=== PATIENT | female | born 1960 | race Caucasian/White ===

== ENCOUNTER 2017-10-21 18:35 | Emergency (ER) | payer OTHER, MEDICAID, SELFPAY ==
[2017-10-21 18:36] VITALS: BP 153/89; PULSE 85; RESP 16; TEMP 37.3; O2SAT 96; BMI 33.6
[2017-10-21 19:04] VITALS: TEMP 38.8
--- NOTE | 2017-10-21 19:05 | EKG12_ITS ---
Test Reason : Blood Pressure : / mmHG Vent. Rate : 074 BPM Atrial Rate : 074 BPM P-R Int : 158 ms QRS Dur : 082 ms QT Int : 352 ms P-R-T Axes : 050 047 048 degrees QTc Int : 390 ms Normal sinus rhythm Normal ECG Confirmed by SIMEON KHAN, CHARLI ([id number]), development editor MARY FRIAS ([id number]) on 10/24/2017 12:50:30 PM Referred By: GALDINO Confirmed By:CHARLI HENDRIX MD
[2017-10-21] MEDS: Acetaminophen 500 MG Tablet 1000 MG PO (19:23)
[2017-10-21] MEDS: 0.9% Normal Saline 1,000 ML 150 ML IV (19:23)
[2017-10-21] MEDS: Ondansetron 4 MG/2 ML Vial IV (19:24)
[2017-10-21 19:31] LABS: Absolute Lymphocyte Count 0.81 X10^3/ul (0.83-4.51); Absolute Neutrophil Count 4.6 X10^3/uL (2.0-7.7); Basophil# 0.02 X10^3/uL; Basophil% 0.3 % (0-1); Eosinophil# 0.03 X10^3/uL; Eosinophils% 0.5 % (0-5); Hematocrit 42.4 % (37-47); Hemoglobin 13.7 g/dl (12.0-15.0); Lymphocyte # 0.81 X10^3/ul (4.0); Lymphocyte % 13.1 % (19-41); Mean Corp Hgb Conc 32.3 g/gl (32-36); Mean Corpuscular Hgb 29.5 pg (27.0-32.0); Mean Corpuscular Volume 91.4 fL (81-99); Mean Platelet Vol. 8.9 fl (6.2-12.0); Monocyte# 0.78 X10^3/uL; Monocyte% 12.6 % (0-10); Neutrophil # 4.56 X10^3/uL (2.7-7.7); Neutrophil % 73.5 % (47-70); POSITIVE COUNT NO; POSITIVE DIFFERENTIAL NO; POSITIVE MORPHOLOGY NO; Platelet Count 206 K/mm3 (150-450); RBC Distribution Width CV 12.7 % (11.6-14.6); RBC Distribution Width SD 42.5 fl (35.1-43.9); Red Blood Count 4.64 M/mm3 (4.2-5.4); White Blood Count 6.2 K/mm3 (4.4-11.0)
--- NOTE | 2017-10-21 19:35 | RAD_ITS ---
STUDY: X-RAY CHEST REASON FOR EXAM: Female, 57 years old. Cough TECHNIQUE: PA and lateral views of the chest. COMPARISON: None. FINDINGS: ekg monitor leads are present. The lungs are clear and expanded. There is no demonstrated pleural abnormality. Normal size heart. Normal mediastinum and denise. Normal visualized pulmonary arteries. Normal visualized aortic arch and descending thoracic aorta. Normal visualized thoracic spine. Normal visualized ribs, clavicles, and shoulders. There is no demonstrated abnormality of the visualized soft tissue structures of the upper abdomen. RAD/Chest PA and Lateral IMPRESSION: Normal x-ray examination of the chest. Electronically Signed: Prosper Tejada MD at 19:51 EDT , Service support ,
[2017-10-21 19:50] LABS: Anion Gap 7 (5-15); BUN 13 mg/dL (7-18); BUN/Creat Ratio 19.8 RATIO (10-20); Calcium,Total 9.5 mg/dL (8.5-10.1); Chloride 106 mmol/L (98-107); Creatinine, Serum 0.66 mg/dL (0.55-1.02); EST Glomerular Filtration Rate 99 mL/min (>60); Est Glom Filt Rate - Afr Amer 120 mL/min (>60); Estimated Creatinine Clearance 75.28 ml/min; Glucose 101 mg/dL (74-106); Potassium 3.7 mmol/L (3.5-5.1); Sodium Level 138 mmol/L (136-145)
--- NOTE | 2017-10-21 21:30 | ED.DCSUM_ITS ---
- ER Visit Summary Date of Service: 10/21/17 Chief Complaint: Body aches, fever, cough History of Present Illness: The patient is a 57 F reports she has been ill since the . She had to leave work early that day because she did not feel well. She complain of generalized weakness and aching sensation in her chest. She has had subjective fevers. She is coughing and bringing up white sputum. She feels nauseated but has had no vomiting or diarrhea. Physical Examination: Vital signs reveal blood pressure 153/89, temperature 99.1 , heart rate 85, respiratory rate 16, ox 96% on room air. The time of my examination her temperature is 101.8 orally. Head neck examination is unremarkable. Heart is regular rate and rhythm. lung sounds are clear. Abdomen is soft nontender. Skin examination reveals no rash or lesions. Test Results: Chest x-ray is unremarkable with no focal infiltrate. EKG is sinus at 74 with no sign of acute ischemia. CBC and chemistry studies are normal. Troponin is less than 0.02. Influenza swab is negative. Blood cultures were sent. Emergency Department Course and Treatment: Patient was given Tylenol, IV fluids , and Zofran. On repeat evaluation she appears much improved. Her repeat temperature is 98.9. I believe the patient has viral syndrome. This was discussed with her and at bedside. She will continue to take Tylenol ibuprofen and increase fluids. Treatment Plan: [] Disposition: Discharge Impression: Viral syndrome This note was generated with [employer] dictation software. It may contain incorrect words, spelling, and punctuation that were not noted in review of the chart prior to signing ED Disposition - Plan for ED Patient: Disposition: Home or Assisted Living Chief Complaint: Cold Sx Instructions: ED Viral Syndrome Referrals: Care Physician,No Primary [Primary Care Provider] - Additional Instructions: Follow-up with your doctor at [facility] in 5-7 days if not improving.
--- NOTE | 2017-10-21 21:30 | ED.DEP ---
ED Disposition - Plan for ED Patient: Disposition: Home or Assisted Living Chief Complaint: Cold Sx Instructions: ED Viral Syndrome Additional Instructions: Follow-up with your doctor at [facility] in 5-7 days if not improving.
[2017-10-21 21:46] VITALS: BP 110/65; PULSE 86; RESP 16; O2SAT 95
== END 2017-10-21 21:50 | disposition home or self-care (01) ==
PROVIDERS: Emergency Provider Emergency Medicine
DX: B34.9 Viral infection, unspecified (principal); R50.9 Fever, unspecified; R07.89 Other chest pain; R05 Cough; R11.0 Nausea; R53.1 Weakness; M79.1 Myalgia; Z90.89 Acquired absence of other organs; Z87.891 Personal history of nicotine dependence
CPT/HCPCS: 36415; 71046; 80048; 84484; 85025; 87040; 87804; 93005; 96361; 96374; 99285; J7030; A4216; J2405

== ENCOUNTER 2018-05-11 06:10 | Emergency (ER) | payer OTHER, MEDICAID, SELFPAY ==
[2018-05-11 06:10] VITALS: BP 139/92; PULSE 71; RESP 18; TEMP 36.8; O2SAT 92; BMI 32.0
--- NOTE | 2018-05-11 06:22 | CT_ITS ---
STUDY: CT ABDOMEN AND PELVIS WITH CONTRAST REASON FOR EXAM: Female, 57 years old. Left lower quadrant pain. RADIATION DOSAGE (If Supplied By Facility): CTDIvol = ( 18.69 ) mGy, DLP = ( 1312.89 ) mGycm TECHNIQUE: Transaxial images were obtained from the dome of the diaphragm to the symphysis pubis with oral contrast. 100 ml of Isovue 300 contrast was administered. Sagittal and coronal images were reconstructed. Individualized dose optimization techniques were used for this CT. COMPARISON: None. FINDINGS: The visualized lung bases are unremarkable. The visualized portions of the heart are within normal limits. There is hepatomegaly with diffuse hepatic enlargement. Normal gallbladder and extrahepatic biliary system. Normal spleen. Normal pancreas. Normal bilateral adrenal glands. Normal right kidney. Normal left kidney. Normal visualized stomach. Normal small intestine. There is diverticulosis, with thickening of the sigmoid colon wall, and pelvic pericolonic inflammation changes consistent with acute diverticulitis, series 2 images 100/132 through 110/132. The appendix is visualized and appears normal. There is diffuse atherosclerotic calcification of the abdominal aorta, without a demonstrated aneurysm. Normal inferior vena cava. Normal retroperitoneum. Normal urinary bladder. Normal visualized uterus. Normal abdominal wall. Normal osseous structures. CT/Abdomen/Pelvis WITH Contrast IMPRESSION: Sigmoid diverticulitis. No obstruction. Electronically Signed: Maximiliano Diane MD at 8:25 EST , Service support ,
[2018-05-11 06:37] LABS: Absolute Lymphocyte Count 1.67 X10^3/ul (0.83-4.51); Absolute Neutrophil Count 6.2 X10^3/uL (2.0-7.7); Basophil# 0.02 X10^3/uL; Basophil% 0.2 % (0-1); Eosinophil# 0.14 X10^3/uL; Eosinophils% 1.6 % (0-5); Hematocrit 39.5 % (37-47); Hemoglobin 12.7 g/dl (12.0-15.0); Lymphocyte # 1.67 X10^3/ul (4.0); Lymphocyte % 18.6 % (19-41); Mean Corp Hgb Conc 32.2 g/gl (32-36); Mean Corpuscular Hgb 29.9 pg (27.0-32.0); Mean Corpuscular Volume 92.9 fL (81-99); Mean Platelet Vol. 8.8 fl (6.2-12.0); Monocyte# 0.93 X10^3/uL; Monocyte% 10.3 % (0-10); Neutrophil # 6.21 X10^3/uL (2.7-7.7); Neutrophil % 69.1 % (47-70); POSITIVE COUNT NO; POSITIVE DIFFERENTIAL NO; POSITIVE MORPHOLOGY NO; Platelet Count 250 K/mm3 (150-450); RBC Distribution Width CV 12.6 % (11.6-14.6); RBC Distribution Width SD 42.4 fl (35.1-43.9); Red Blood Count 4.25 M/mm3 (4.2-5.4)
--- NOTE | 2018-05-11 06:41 | ED.DCSUM_ITS ---
- ER Visit Summary Date of Service: 05/11/18 Chief Complaint: Abdominal pain History of Present Illness: The patient is a 57 F who presents with abdominal pain. It is been present for 4 days. It is intermittent in the left lower abdomen. She states that it is worse last night it was an 8 out of 10 in [facility]. Currently she describes her pain is mild and rates it as 4 out of 10. She had prior similar symptoms when she had constipation but states she has been having daily bowel movements. She denies diarrhea nausea vomiting fever. She denies any urinary symptoms such as dysuria frequency urgency. She reports a colonoscopy previously which was reportedly normal. No history of diverticulitis. Physical Examination: Afebrile vitals normal Patient resting comfortably no distress Moist mucous membranes Heart regular rate and rhythm Lungs are clear Abdomen soft nondistended she does have some left lower quadrant tenderness no guarding no rebound Alert Test Results: CBC BMP unremarkable. Urinalysis and CT of the abdomen and pelvis with oral and IV contrast is pending at the time of this dictation. Emergency Department Course and Treatment: Patient declined any pain medications at the time my evaluation. She stated her pain was manageable. I am suspicious for acute diverticulitis. CT pending as above. What patient will be signed out to the oncoming physician to follow-up on results and make final disposition. Treatment Plan: [] Disposition: Pending CT Impression: Left lower quadrant abdominal pain This note was generated with [employer] dictation software. It may contain incorrect words, spelling, and punctuation that were not noted in review of the chart prior to signing ED Disposition - Plan for ED Patient: Chief Complaint: Abd Pain Referrals: Care Physician,No Primary [NON-STAFF] -
[2018-05-11 06:51] LABS: Anion Gap 7 (5-15); BUN 13 mg/dL (7-18); BUN/Creat Ratio 23.3 RATIO (10-20); Calcium,Total 9.2 mg/dL (8.5-10.1); Chloride 108 mmol/L (98-107); Creatinine, Serum 0.56 mg/dL (0.55-1.02); EST Glomerular Filtration Rate 119 mL/min (>60); Est Glom Filt Rate - Afr Amer 144 mL/min (>60); Estimated Creatinine Clearance 88.72 ml/min; Glucose 106 mg/dL (74-106); Potassium 4.3 mmol/L (3.5-5.1); Sodium Level 139 mmol/L (136-145)
[2018-05-11 07:09] LABS: Bacteria 0 SEEN /hpf (None Seen); Mucous, Urine 0 SEEN /hpf (<or=2+); Red Blood Cells-Urine 0 SEEN /hpf (0-5); White Blood Cells 0 SEEN /hpf (0-5)
[2018-05-11 07:13] LABS: Color, Urine Yellow (Yellow); Glucose, Dipstick Normal (Normal); Ketone-Dipstick Negative (Negative); Leukocyte Esterase-Dipstick 25 /ul (Negative); Nitrite-Dipstick Negative (Negative); Occult Blood-Urine Negative /ul (Negative); Protein-Dipstick 15 mg/dl (Negative); Urine Bilirubin Dipstick Negative (Negative); Urine Clarity Clear (Clear); Urine Urobilinogen Normal (Normal)
[2018-05-11 07:19] LABS: Squamous Epithelial Cells - UA 0-5 SEEN /hpf (5-10)
[2018-05-11] MEDS: Ondansetron 4 MG/2 ML Vial IV (09:19)
[2018-05-11] MEDS: Morphine 4 MG/ML Syringe IV (09:19)
[2018-05-11] MEDS: metroNIDAZOLE 500 MG Tablet PO (09:24)
[2018-05-11] MEDS: Ciprofloxacin 500 MG Tablet PO (09:24)
--- NOTE | 2018-05-11 09:31 | ED.DEP ---
ED Disposition - Plan for ED Patient: Chief Complaint: Abd Pain Instructions: ED Diverticulitis Prescriptions: Hydrocodone Bitart/Apap 5-325 [[place] 5MG-325MG] 1 tab PO QHS 2 Days #5 tab Ciprofloxacin [Cipro] 500 mg PO BID #14 tab Naproxen [Naprosyn] 500 mg PO BID #14 tab Metronidazole [Flagyl] 500 mg PO Q6H #40 tab Referrals: Care Physician,No Primary [NON-STAFF] - Rohit Munoz DO [STAFF PHYSICIAN] -
--- NOTE | 2018-05-11 09:34 | DCINST.ED_ITS ---
ED Disposition - Plan for ED Patient: Chief Complaint: Abd Pain Instructions: ED Diverticulitis Prescriptions: Hydrocodone Bitart/Apap 5-325 [[place] 5MG-325MG] 1 tab PO QHS 2 Days #5 tab Ciprofloxacin [Cipro] 500 mg PO BID #14 tab Naproxen [Naprosyn] 500 mg PO BID #14 tab Metronidazole [Flagyl] 500 mg PO Q6H #40 tab Referrals: Care Physician,No Primary [NON-STAFF] - Rohit Munoz DO [STAFF PHYSICIAN] -
[2018-05-11 09:39] VITALS: BP 141/67; PULSE 82; RESP 16; O2SAT 98
== END 2018-05-11 09:40 | disposition home or self-care (01) ==
LOC: ED 06:40
PROVIDERS: Emergency Provider Emergency Medicine; Family Provider Family Medicine; PCP Family Medicine
DX: K57.32 Diverticulitis of large intestine without perforation or abscess without bleeding (principal)
CPT/HCPCS: 74177; 80048; 81001; 85025; 96374; 96375; 99284; Q9967; A4216; J2405

== ENCOUNTER → 2018-10-30 | Outpatient (CLI) | payer OTHER, MEDICAID, SELFPAY ==
--- NOTE | 2018-10-30 15:25 | RAD_ITS ---
STUDY: X-RAY - RIGHT HAND REASON FOR EXAM: Pain. TECHNIQUE: 3 view(s) of the hand. COMPARISON: None. FINDINGS: Normal radiocarpal articulation. Normal distal radioulnar joint. Normal visualized carpal bones. Normal carpal articulations Normal carpometacarpal articulation of the thumb. Normal second through fifth carpometacarpal joints. Normal metacarpi. Normal metacarpophalangeal joint of the thumb. Normal interphalangeal joint of the thumb. Normal proximal and distal phalanges of the thumb. Normal metacarpophalangeal joints of the second through fifth fingers. Normal proximal and distal interphalangeal joints of the second through fifth fingers. Normal phalanges of the second through fifth fingers. The soft tissue structures are unremarkable. RAD/Hand Min 3 Views IMPRESSION: Unremarkable x-ray examination of the right hand. Electronically Signed: Hipolito Almanzar MD at 16:01 EDT Tel , Service support ,
--- NOTE | 2018-10-30 15:25 | RAD_ITS ---
STUDY: X-RAY - LEFT HAND REASON FOR EXAM: Female, 58 years old. Left-sided hand pain. TECHNIQUE: 3 view(s) of the hand. COMPARISON: Prior comparison studies are not available for review at this time. FINDINGS: There is joint space narrowing of the radiocarpal articulation consistent with degenerative arthrosis. Normal distal radioulnar joint. There is a lucency within the scaphoid and may represent a bone cyst. The carpal bones otherwise are within normal limits. Normal carpal articulations Normal carpometacarpal articulation of the thumb. Normal second through fifth carpometacarpal joints. Normal metacarpi. Normal metacarpophalangeal joint of the thumb. Normal interphalangeal joint of the thumb. Normal proximal and distal phalanges of the thumb. Normal metacarpophalangeal joints of the second through fifth fingers. Normal proximal and distal interphalangeal joints of the second through fifth fingers. Normal phalanges of the second through fifth fingers. There is soft tissue swelling. RAD/Hand Min 3 Views IMPRESSION: Soft tissue swelling without obvious acute fracture. Electronically Signed: Aliay Hirsch MD at 0:33 EDT , Service support ,
== END | disposition home or self-care (01) ==
PROVIDERS: Family Provider Family Medicine; PCP Family Medicine; Referring Provider Orthopaedic Surgery; Visit Provider Orthopaedic Surgery
DX: M79.641 Pain in right hand (principal); M79.642 Pain in left hand
CPT/HCPCS: 73130

== ENCOUNTER 2018-11-18 15:30 | Outpatient (RCR) | payer OTHER, MEDICAID, SELFPAY ==
--- NOTE | 2018-11-06 18:31 | HP.OTEVAL ---
Patient's Visit Information CHARLY STEPHENS is a 58 year old F, referred to Occupational Therapy by Kalee Kauffman DO, with a diagnosis of bilateral hand/finger stiffness pain, R thumb trigger finger. Date of Evaluation: 11/06/18 Occupational Therapist: Elli Brito - Subjective Subjective: Pt seen for initial OT evaluation for bilateral hand stifness and pain, R thumb trigger finger. Pt had carpel tunnel sx last November 2017 and now having increased stifffness and pain bilateral fingers. Pt works at [employer] in [employer] completing repetitive work tasks for [employer]. Right hand dominent. Pt indep w/ BADLs/IADLs does have difficulty with opening larger jars and states has increased pain bilateral hands at night and when getting up in the morning. - Pain R hand 1 Pain Intensity Range: 1, 5 L hand 1 Pain Intensity Range: 1, 5 - Objective Objective/Observation: R thumb trigger finger, limited ROM R thumb, increased edema R thumb - ROM Wrist: R 55/64, L 64/72 CMC: R 0/35, L 0/60 MP: R 0/5, L 0/18 IP: R 0/20 L 0/23 - Strength Property Administrator: R 15#, L 25# Lateral Pinch: R 6#, L 8# Tripod Pinch: R 5#, L 7# Strength Comments: R hand dominent - Edema Other: Slight edema R thumb thenar eminence - Sensation Sensation Comments: No numbness or tingling - Quick DASH-Disab of Arm,Shoulder& Hand Quick DASH Score: 47.7250 - Goals Goal:: Pt will progress w/ R hand music publisher strength by 10# to assist w/ functional living tasks by d/c from OT services. Goal:: Pt will progress w/ R thumb MP flexion by 10' to increase indep w/ functional living tasks. Goal:: Pt will demo minimal pain bilateral hands 07/10 by d/c from OT services Goal:: Pt will be educated on joint protection/energy conservation techniques with good understanding and demo 100%x Goal:: Pt will be educated on R hand HEP with good understanding and demo 100%x - Rehabilitation General Assessment: Pt demo decreased ROM R thumb, increased edema R thumb thenar eminence, increased pain bilateral hands and decreased strength R hand all indicating a need for skilled OT services to educate on joint protection/energy conservation, decrease pain bilateral hands, increase ROM R thumb, increase strength R hand, educate on HEP. Rehabilitation Potential: Excellent - Anticipated Interventions Anticipated Interventions: A/AAROM/PROM, Strengthening, Edema Control, Massage, Triggerpoint Release, Modalities, Orthoses, Joint Protection/Energy Conservation, Education re Diagnosis, Education re Self Massage Techniques, Home Program - Visit Plan Frequency: 1-2x /Week Duration: 4-6 Weeks General Plan: educate on joint protection/energy conservation, decrease pain bilateral hands, increase ROM R thumb, increase strength R hand, educate on HEP. TEXT: Thank you for the opportunity to evaluate your patient. For Medicare and Medicare HMO plans, please review the plan of care and approve it. It will need to be FAXED BACK to us at [phone] for Medicare purposes. Please let me know if there are questions or concerns regarding this plan of care. Physician Signature: Date:
--- NOTE | 2019-04-09 16:34 | HP.OT.NRP ---
HP - Discharge Summary - Patient Information CHARLY STEPHENS was seen in my office for initial evaluation on 11/06/18. The following Plan of Care was established for this patient: Initial Frequency: 1-2x /Week Initial Duration: 4-6 Weeks Plan: cont POC , CHT suggusting cortizone injection - Anticipated Interventions Anticipated Interventions: A/AAROM/PROM, Strengthening, Edema Control, Massage, Triggerpoint Release, Modalities, Orthoses, Joint Protection/Energy Conservation, Education re Diagnosis, Education re Self Massage Techniques, Home Program This patient was last seen in our office 11/18/18. Pertinent comments regarding their Occupational therapy will appear below: Pt last seen 11/18/18 for OT services with focus on decreasing pain bilateral hands/wrists and increasing strength. Pt did not meet all goals secondary to non-returning At this point I will be discontinuing this patient from occupational therapy. I would be happy to see this patient again in the future if found appropriate by the physician. Thank you! Elli Brito
== END 2018-11-18 19:00 | disposition home or self-care (01) ==
LOC: OT 15:30
PROVIDERS: Family Provider Family Medicine; PCP Family Medicine; Referring Provider Orthopaedic Surgery; Visit Provider Orthopaedic Surgery
DX: M25.641 Stiffness of right hand, not elsewhere classified (principal); M25.642 Stiffness of left hand, not elsewhere classified; M79.641 Pain in right hand; M79.642 Pain in left hand; M65.311 Trigger thumb, right thumb
CPT/HCPCS: 97035; 97140; 97165; 97166; 97530

== ENCOUNTER 2020-06-24 17:18 | Emergency (ER) | payer OTHER, MEDICAID, SELFPAY ==
[2020-06-24 17:19] VITALS: BP 126/53; PULSE 84; RESP 20; TEMP 37.3; O2SAT 96; BMI 33.8
[2020-06-24 17:21] VITALS: BP 126/53; PULSE 84; RESP 20; TEMP 37.3; O2SAT 96
--- NOTE | 2020-06-24 17:46 | RAD_ITS ---
STUDY: X-RAY CHEST REASON FOR EXAM: Female, 59 years old. chest pain TECHNIQUE: Single AP portable view of the chest. COMPARISON: 10/21/2017 FINDINGS: There are superimposed monitor leads. Stable elevation right hemidiaphragm. Stable compression of parenchyma in the right base. There are areas of hyperinflation. The lungs are clear and expanded. There is no demonstrated pleural abnormality. Normal size heart. Normal mediastinum and denise. Normal visualized pulmonary arteries. Normal visualized aortic arch and descending thoracic aorta. Normal visualized thoracic spine. Normal visualized ribs, clavicles, and shoulders. There is no demonstrated abnormality of the visualized soft tissue structures of the upper abdomen. RAD/Chest 1 View (Portable) IMPRESSION: Stable elevation of the right hemidiaphragm with compression of right basilar parenchyma, areas of hyperinflation. No pulmonary edema, congestive heart failure or confluent pneumonia. Electronically Signed: Jessica Mcdaniels MD at 18:57 EST , Service support ,
--- NOTE | 2020-06-24 17:47 | EKG12_ITS ---
Test Reason : Blood Pressure : / mmHG Vent. Rate : 082 BPM Atrial Rate : 082 BPM P-R Int : 164 ms QRS Dur : 086 ms QT Int : 340 ms P-R-T Axes : 048 052 060 degrees QTc Int : 397 ms Normal sinus rhythm Normal ECG Confirmed by ENEDINA KHAN, ADRIEL ([id number]), photography editor LALITA BLACKWOOD ([id number]) on 06/30/2020 10:03:26 AM Referred By: GALDINO Confirmed By:CORINNE MCCONNELL MD
--- NOTE | 2020-06-24 17:48 | ED.DCSUM_ITS ---
History of Present Illness Chief Complaint: General Illness Informant: Patient Onset: Days Context: Gradual Onset Current Severity: Moderate Maximum Severity: Moderate Narrative: Patient presents with body aches, low-grade fever, cough. She reported tested positive for Covid on the seventh. She states her quarantine period ended on the and she thought she was better. A couple days ago she started feeling worse again with generalized body aches and chest pain. She reports a fever up to 100. She reports increased thirst and urination as well. Past Medical History - Allergies and Home Meds Allergies/Adverse Reactions: Allergies Penicillins Allergy (Verified 06/24/20 17:19) Hives Primary Care Physician: Jayy Ponce MD [Primary Care Provider] - Past Medical History: None Smoking Status: Never smoker Review of Systems General: Reports: Fever - T-max equals 100 Eyes: Denies: Visual changes - bilaterally ENT: Denies: Bilateral ear pain Cardiovascular: Reports: Chest pain Respiratory: Reports: Cough Gastrointestinal: Reports: Nausea. Denies: Abdominal pain, Vomiting, Diarrhea Musculoskeletal: Reports: Myalgias. Denies: Swelling Skin: Denies: Rash Neurological: Denies: Headache Endocrine: Reports: Polyuria, Polydipsia Hematologic: Denies: Easy bruising Allergy: Denies: Uticaria Physical Exam Vital Signs/Narrative: Vital Signs Temp Pulse Resp BP Pulse Ox 06/24/20 17:19 99.1 F 84 20 H 126/53 H 96 Inital Vital Signs reviewed: Yes General: Well nourished, Well developed Head: Normocephalic Neck: Supple Cardiovascular: Regular rate, Regular rhythm Respiratory: No distress, CTA bilaterally Abdomen: Soft, Nontender, Normal bowel sounds Extremities: Nontender Skin: Normal color Neurological: Alert, Oriented x3 Psychological: Normal affect Diagnostic/Tx/Re-eval Chest X-Ray - ED: 1 View, Read by ED Physician, Chronic Changes, No Infiltrates Impressions Chest X-Ray 06/24/20 17:46 IMPRESSION: Stable elevation of the right hemidiaphragm with compression of right basilar parenchyma, areas of hyperinflation. No pulmonary edema, congestive heart failure or confluent pneumonia. Electronically Signed: Jessica Mcdaniels MD at 18:57 EST , Service support , 06/24/20 17:46 Chest 1 View (Portable) [RAD] Stat Laboratory Results 06/24/20 06/24/20 06/24/20 18:00 18:00 18:00 WBC 4.3 L RBC 4.74 Hgb 13.7 Hct 43.4 MCV 91.6 MCH 28.9 MCHC 31.6 L RDW Std Deviation 42.4 RDW Coeff of Jadyn 12.5 Plt Count 145 L MPV 11.4 Immature Gran % (Auto) 0.500 Neut % (Auto) 61.0 Lymph % (Auto) 23.1 [place] % (Auto) 14.7 H Eos % (Auto) 0.2 Baso % (Auto) 0.5 Absolute Neuts (auto) 2.6 Absolute Lymphs (auto) 0.99 Nucleated RBC % 0 D-Dimer Quant (PE/DVT) 0.52 H* Sodium 140 Potassium 4.4 Chloride 109 H Carbon Dioxide 26.0 Anion Gap 5 BUN 13 Creatinine 0.62 Estim Creat Clear Calc 78.23 Est GFR (MDRD) Af Amer 128 Est GFR (MDRD) Non-Af 106 BUN/Creatinine Ratio 21.1 H Glucose 94 Calcium 9.4 Troponin I < 0.015 Urine Color Urine Clarity Urine pH Ur Specific [place] Urine Protein Urine Glucose (UA) Urine Ketones Urine Occult Blood Urine Nitrite Urine Bilirubin Urine Urobilinogen Ur Leukocyte Esterase Urine RBC Urine WBC Ur Squamous Epith Cells Urine Bacteria Urine Mucus 06/24/20 19:45 WBC RBC Hgb Hct MCV MCH MCHC RDW Std Deviation RDW Coeff of Jadyn Plt Count MPV Immature Gran % (Auto) Neut % (Auto) Lymph % (Auto) [place] % (Auto) Eos % (Auto) Baso % (Auto) Absolute Neuts (auto) Absolute Lymphs (auto) Nucleated RBC % D-Dimer Quant (PE/DVT) Sodium Potassium Chloride Carbon Dioxide Anion Gap BUN Creatinine Estim Creat Clear Calc Est GFR (MDRD) Af Amer Est GFR (MDRD) Non-Af BUN/Creatinine Ratio Glucose Calcium Troponin I Urine Color Yellow Urine Clarity Clear Urine pH 7.0 Ur Specific [place] 1.010 Urine Protein Negative Urine Glucose (UA) Normal Urine Ketones 5 H Urine Occult Blood Negative Urine Nitrite Negative Urine Bilirubin Negative Urine Urobilinogen Normal Ur Leukocyte Esterase Negative Urine RBC 0 SEEN Urine WBC 0 SEEN Ur Squamous Epith Cells 0 SEEN Urine Bacteria 1+ Urine Mucus 0 SEEN - EKG Initial EKG Interpretation: Sinus Rhythm - Sinus 82 with no acute ischemia. - Medical Decision Making Patient was given Toradol, morphine, Zofran, and 500 cc IV fluid. Chest x-ray per my interpretation reveals no focal infiltrate. Radiologist read is reviewed. Blood work is unremarkable. D-dimer is normal when age-adjusted. Urinalysis shows no sign of acute infection. Patient will be written a prescription for Zofran. She will continue Tylenol and ibuprofen. ED Disposition - Plan for ED Patient: Disposition: Home or Assisted Living Diagnosis: COVID-19 Instructions: Coronavirus Disease 2019 (COVID-19): Overview, Coronavirus Disease 2019 (COVID-19): Caring for Yourself or Others Prescriptions: Ondansetron [Zofran Odt] 4 mg PO Q8H PRN PRN #10 tablet PRN Reason: Nausea Referrals: Jayy Ponce MD [Primary Care Provider] - 1 Week if not improving
[2020-06-24 18:11] LABS: Absolute Lymphocyte Count 0.99 X10^3/uL (0.83-4.51); Absolute Neutrophil Count 2.6 X10^3/uL (2.0-7.7); Basophil# 0.02 X10^3/uL; Basophil% 0.5 % (0-1); Eosinophil# 0.01 X10^3/uL; Eosinophils% 0.2 % (0-5); Hematocrit 43.4 % (37-47); Hemoglobin 13.7 g/dL (12.0-15.0); Lymphocyte # 0.99 X10^3/ul (4.0); Lymphocyte % 23.1 % (19-41); Mean Corp Hgb Conc 31.6 g/dL (32-36); Mean Corpuscular Hgb 28.9 pg (27.0-32.0); Mean Corpuscular Volume 91.6 fL (81-99); Mean Platelet Vol. 11.4 fl (6.2-12.0); Monocyte# 0.63 X10^3/uL; Monocyte% 14.7 % (0-10); NRBC Flagged by Analyzer 0 % (0-5); Neutrophil # 2.61 X10^3/uL (2.7-7.7); Platelet Count 145 K/mm3 (150-450); RBC Distribution Width CV 12.5 % (11.6-14.6); RBC Distribution Width SD 42.4 fl (35.1-43.9); Red Blood Count 4.74 M/mm3 (4.2-5.4); White Blood Count 4.3 K/mm3 (4.4-11.0)
[2020-06-24 18:21] VITALS: BP 136/75; PULSE 84; RESP 20; TEMP 37.5; O2SAT 96
[2020-06-24 18:31] LABS: Anion Gap 5 (5-15); BUN 13 mg/dL (7-18); BUN/Creat Ratio 21.1 RATIO (10-20); Calcium,Total 9.4 mg/dL (8.5-10.1); Chloride 109 mmol/L (98-107); Creatinine, Serum 0.62 mg/dL (0.55-1.02); EST Glomerular Filtration Rate 106 mL/min (>60); Est Glom Filt Rate - Afr Amer 128 mL/min (>60); Estimated Creatinine Clearance 78.23 ml/min; Glucose 94 mg/dL (74-106); Potassium 4.4 mmol/L (3.5-5.1); Sodium Level 140 mmol/L (136-145)
[2020-06-24] MEDS: Ketorolac 15 MG/ML Vial IV (18:35)
[2020-06-24] MEDS: Morphine 4 MG/ML Syringe IV (18:35)
[2020-06-24] MEDS: Ondansetron 4 MG/2 ML Vial IV (18:35)
[2020-06-24 18:38] LABS: D-Dimer Quantitative (DVT/PE) 0.52 FEU/ug/m (0.27-0.49)
[2020-06-24 19:00] VITALS: BP 115/70; PULSE 72; RESP 18; TEMP 36.7; O2SAT 93
[2020-06-24 19:18] VITALS: BP 115/70; PULSE 78; RESP 15; O2SAT 96
[2020-06-24 20:03] LABS: Color, Urine Yellow (Yellow); Glucose, Dipstick Normal (Normal); Ketone-Dipstick 5 mg/dl (Negative); Leukocyte Esterase-Dipstick Negative /ul (Negative); Mucous, Urine 0 SEEN /hpf (<or=2+); Nitrite-Dipstick Negative (Negative); Occult Blood-Urine Negative /ul (Negative); Protein-Dipstick Negative (Negative); Red Blood Cells-Urine 0 SEEN /hpf (0-5); Squamous Epithelial Cells - UA 0 SEEN /hpf (5-10); Urine Bilirubin Dipstick Negative (Negative); Urine Clarity Clear (Clear); Urine Urobilinogen Normal (Normal); White Blood Cells 0 SEEN /hpf (0-5)
[2020-06-24 20:10] LABS: Bacteria 1+ /hpf (None Seen)
[2020-06-24 20:34] VITALS: BP 117/82; PULSE 81; RESP 18; O2SAT 97
== END 2020-06-24 20:34 | disposition home or self-care (01) ==
PROVIDERS: Emergency Provider Emergency Medicine; PCP Family Medicine
DX: U07.1 COVID-19 (principal); M79.10 Myalgia, unspecified site; R50.9 Fever, unspecified; R05 Cough
CPT/HCPCS: 71045; 80048; 81001; 84484; 85025; 85379; 93005; 96361; 96374; 96375; 99283; J7030; J2405

== ENCOUNTER 2021-02-26 02:03 | Emergency (ER) | payer OTHER, MEDICAID, SELFPAY ==
[2021-02-26 02:06] VITALS: BP 148/83; PULSE 68; RESP 16; TEMP 36.8; O2SAT 97; BMI 38.8
--- NOTE | 2021-02-26 02:19 | CT_ITS ---
HISTORY: left flank pain EXAMINATION: CT Abdomen And Pelvis W/ Contrast Injection TECHNIQUE: Helically acquired images were obtained of the abdomen and pelvis following IV contrast. A radiation dose optimization technique was used for this scan. IV Contrast dosage and agent: 100mL Isovue-370 Oral contrast: None. COMPARISON: Contrast-enhanced CT abdomen and pelvis from 05/11/18 FINDINGS: LOWER CHEST: Mild dependent atelectasis. Heart size upper limits normal. LIVER: Fatty and slightly enlarged liver measuring 17.5 cm AP diameter. Tiny low attenuation cyst within left lobe. No concerning hepatic lesion. GALLBLADDER AND BILIARY TREE: No calcified gallstones identified. There is no pericholecystic edema. No significant biliary ductal dilation. KIDNEYS AND URETERS: Normal renal size. No concerning lesion. There is no perinephric inflammation or hydronephrosis. ADRENAL GLANDS: Non-enlarged. SPLEEN: Normal size without discrete mass. PANCREAS: No discrete mass or peripancreatic inflammation. BOWEL: No evidence of acute appendicitis. Scattered colonic diverticula. Inflamed diverticulum at the distal descending colon with focal colonic wall thickening and pericolonic fat stranding. No bowel obstruction. LYMPH NODES: No enlarged mesenteric or retroperitoneal lymph nodes. PERITONEUM: Trace free fluid within the lower left paracolic gutter adjacent to inflamed diverticulum. No free air or abscess demonstrated. VESSELS: Mild atherosclerosis. URINARY BLADDER: Unremarkable. REPRODUCTIVE ORGANS: No pelvic masses. ABDOMINAL WALL: No acute findings or significant hernia defect. BONES: Intact with no suspicious osseous lesion. CT/Abdomen/Pelvis W IV Cont ONLY IMPRESSION: 1. Left lower quadrant colonic diverticulitis with no perforation or abscess formation. 2. Mild hepatomegaly and hepatic steatosis. 3. Other nonurgent findings within body of report. Individualized dose optimization techniques were used for this CT. at 0403 Reported and signed by: Rohit Jose MD Electronically Signed: Rohit Jose MD at 4:02 EDT Tel , Service support ,
[2021-02-26 02:46] LABS: Mucous, Urine 0 SEEN /hpf (<or=2+); Red Blood Cells-Urine 0 SEEN /hpf (0-5)
[2021-02-26 02:52] LABS: Color, Urine Yellow (Yellow); Glucose, Dipstick Normal (Normal); Ketone-Dipstick Negative (Negative); Leukocyte Esterase-Dipstick 25 /ul (Negative); Nitrite-Dipstick Negative (Negative); Occult Blood-Urine Negative /ul (Negative); Protein-Dipstick Negative (Negative); Specific Gravity, Urine 1.015 (1.002-1.030); Urine Bilirubin Dipstick Negative (Negative); Urine Clarity Clear (Clear); Urine Urobilinogen Normal (Normal); Urine pH 6.5 (5.0 - 8.0)
[2021-02-26] MEDS: Morphine 4 MG/ML Syringe IV (03:05)
[2021-02-26 03:14] LABS: Absolute Lymphocyte Count 1.64 X10^3/uL (0.83-4.51); Absolute Neutrophil Count 7.7 X10^3/uL (2.0-7.7); Basophil# 0.04 X10^3/uL; Basophil% 0.4 % (0-1); Eosinophils% 1.9 % (0-5); Hematocrit 40.7 % (37-47); Hemoglobin 13.4 g/dL (12.0-15.0); Lymphocyte # 1.64 X10^3/ul (0.83-4.51); Lymphocyte % 15.3 % (19-41); Mean Corp Hgb Conc 32.9 g/dL (32-36); Mean Corpuscular Hgb 30.7 pg (27.0-32.0); Mean Corpuscular Volume 93.1 fL (81-99); Mean Platelet Vol. 8.8 fl (6.2-12.0); Monocyte# 1.05 X10^3/uL; Monocyte% 9.8 % (0-10); NRBC Flagged by Analyzer 0 % (0-5); Neutrophil # 7.74 X10^3/uL (2.7-7.7); Neutrophil % 72.2 % (47-70); Platelet Count 269 K/mm3 (150-450); RBC Distribution Width CV 12.4 % (11.6-14.6); RBC Distribution Width SD 42.9 fl (35.1-43.9); Red Blood Count 4.37 M/mm3 (4.2-5.4); White Blood Count 10.7 K/mm3 (4.4-11.0)
--- NOTE | 2021-02-26 03:25 | RAD_ITS ---
HISTORY: left rib pain EXAMINATION/TECHNIQUE: XR Chest 1 View AP view COMPARISON: AP chest x-ray from 06/24/20 FINDINGS: LINES/DEVICES: None. LUNGS: No overt pulmonary edema. No focal airspace consolidation. No sizable pleural effusion. No pneumothorax detected. Stable mildly elevated right hemidiaphragm. MEDIASTINUM AND CARDIOVASCULAR STRUCTURES: Stable apical limits normal heart size. Central airways and mediastinal contour are unremarkable. BONES AND SOFT TISSUES: No acute findings. No displaced rib fracture identified. RAD/Chest 1 View (Portable) IMPRESSION: No radiographic evidence of acute cardiopulmonary disease. at 0357 Reported and signed by: Rohit Jose MD Electronically Signed: Rohit Jose MD at 3:55 EDT Tel , Service support ,
[2021-02-26 03:27] LABS: Bacteria RARE /hpf (None Seen); Squamous Epithelial Cells - UA 0-5 SEEN /hpf (5-10); White Blood Cells 0-5 SEEN /hpf (0-5)
[2021-02-26 03:32] LABS: ALB/GLOB Ratio 0.9 RATIO (0.9-2.4); AST(SGOT) 34 U/L (15-37); Alanine Aminotransfer ALT/SGPT 59 U/L (13-56); Albumin, Serum 3.4 g/dL (3.2-5.0); Alkaline Phosphatase 120 U/L (45-117); Anion Gap 7 (5-15); BUN 13 mg/dL (7-18); BUN/Creat Ratio 23.9 RATIO (10-20); Calcium,Total 9.3 mg/dL (8.5-10.1); Chloride 107 mmol/L (98-107); Creatinine, Serum 0.54 mg/dL (0.55-1.02); EST Glomerular Filtration Rate 122 mL/min (>60); Est Glom Filt Rate - Afr Amer 147 mL/min (>60); Estimated Creatinine Clearance 88.72 ml/min; Globulin 3.7 g/dL (2.2-4.2); Glucose 119 mg/dL (74-106); Lipase 342 U/L (73-393); Potassium 3.9 mmol/L (3.5-5.1); Protein, Total 7.1 g/dL (6.4-8.2); Sodium Level 141 mmol/L (136-145)
[2021-02-26 03:54] LABS: Lactic Acid 1.7 mmol/L (0.4-1.9)
--- NOTE | 2021-02-26 04:23 | ED.VIS.GI ---
HPI HPI - GI History of Present Illness Chief Complaint: Flank Pain Informant: patient Narrative Narrative: Patient is a 60-year-old female with history of diverticulitis 4 years ago presenting with left-sided abdominal pain. Patient states the pain seems to radiate from her ribs down to her suprapubic area and is on the left side. She states it woke her up from sleep. Is been going on for the past 3 days but became worse tonight. She describes it as sharp in nature. It was intermittent but now it is constant. She has had some frequency of urination but no she has been drinking a lot of water since it started. She denies associated nausea or vomiting. Denies any change in bowel habits. No black or blood in her stool. No fever. No chest pain or shortness of breath. Has been taking Tylenol at home with some mild relief of her symptoms. Has had multiple abdominal surgeries. PFSH PFS Medical History Acute diverticulitis of intestine Home Medications ciprofloxacin HCl [Cipro] 500 mg PO BID #14 tab 02/26/21 [Rx Last Taken Unknown] hydrocodone-acetaminophen 1 tab PO Q6H PRN 3 Days #12 tab 02/26/21 [Rx Last Taken Unknown] metronidazole [Flagyl] 500 mg PO Q8H #21 tab 02/26/21 [Rx Last Taken Unknown] ondansetron HCl [Zofran] 4 mg PO Q8H PRN #14 tab 02/26/21 [Rx Last Taken Unknown] Allergy/AdvReac Type Severity Reaction Status Date / Time Penicillins Allergy Hives Verified 02/26/21 02:04 Surgical History S/P tonsillectomy and adenoidectomy Social History Smoking Status: Never smoker ROS ROS ED Constitutional Constitutional ED: Denies chills or fever(s) ENT ENT ED: Denies rhinorrhea Cardiovascular Cardiovascular: Denies chest pain or palpitations Respiratory/Chest Respiratory/Chest: Denies cough or dyspnea Gastrointestinal Gastrointestinal: Reports abdominal pain; Denies diarrhea, melena, nausea or vomiting Genitourinary Genitourinary ED: Reports urinary frequency; Denies dysuria or hematuria Musculoskeletal Musculoskeletal: Denies arthralgias or myalgias Integumentary Denies rash Neurologic Neurologic: Denies headache(s) Psychiatric Psychiatric: Denies depression EXAM Physical Exam Const Vital Signs: 02/26/21 02:06 Temperature 98.3 F Temperature Source Oral Pulse Rate 68 Respiratory Rate 16 Blood Pressure 148/83 H Blood Pressure Mean 104 Pulse Ox 97 Oxygen Delivery Method Room Air Positive well nourished and well developed General Appearance ED: well developed HEENT Reports moist mucous membranes normocephalic and atraumatic Eyes PERRL and EOMs intact bilaterally Neck supple and no JVD Resp normal respiratory effort and clear to auscultation bilaterally Cardio regular rate, regular rhythm and no murmurs GI Auscultation: normoactive bowel sounds Palpation: soft and tender LLQ and suprapubic; Negative for guarding or rebound tenderness present Extremity full ROM General Extremety ED: Negative for edema General Extremity: Negative for edema Neuro moves all extremities Sensorium / Orientation: alert Motor Exam: Negative for general weakness Psych mental status grossly normal Skin Lesions: no lesions Rashes: no rashes MDM MDM MDM Narrative Medical decision making narrative: Patient is evaluated for worsening left-sided abdominal pain. She is quite tender in her abdomen but does not have any peritoneal signs. She is given IV morphine in the emergency room. Her CBC is relatively normal as well as her CMP. Lactate is normal. Urinalysis shows 25 leukoesterase but is not concerning for UTI. CT abdomen pelvis does show diverticulitis that perforation or abscess in the left lower quadrant. This is consistent with her presentation. As patient is allergic to penicillin, she is started on Cipro and Flagyl. She is given first dose in the emergency room. She will follow up outpatient with her PCP. She is also in a prescription for [place] and Zofran for further symptom relief. She is counseled she might need to take a stool softener while she is on pain medications because of opioid-induced constipation. Lab Data Attestation: I reviewed the patient's lab results. Labs: Laboratory Results - last 24 hr 02/26/21 02/26/21 02/26/21 02:42 03:07 03:07 WBC 10.7 RBC 4.37 Hgb 13.4 Hct 40.7 MCV 93.1 MCH 30.7 MCHC 32.9 RDW Std Deviation 42.9 RDW Coeff of Jadyn 12.4 Plt Count 269 MPV 8.8 Immature Gran % (Auto) 0.400 Neut % (Auto) 72.2 H Lymph % (Auto) 15.3 L [place] % (Auto) 9.8 Eos % (Auto) 1.9 Baso % (Auto) 0.4 Absolute Neuts (auto) 7.7 Absolute Lymphs (auto) 1.64 Nucleated RBC % 0 Sodium 141 Potassium 3.9 Chloride 107 Carbon Dioxide 27.0 Anion Gap 7 BUN 13 Creatinine 0.54 L Estim Creat Clear Calc 88.72 Est GFR (MDRD) Af Amer 147 Est GFR (MDRD) Non-Af 122 BUN/Creatinine Ratio 23.9 H Glucose 119 H Lactic Acid Calcium 9.3 Total Bilirubin 0.80 AST 34 ALT 59 H Alkaline Phosphatase 120 H Total Protein 7.1 Albumin 3.4 Globulin 3.7 Albumin/Globulin Ratio 0.9 Lipase 342 Urine Color Yellow Urine Clarity Clear Urine pH 6.5 Ur Specific [place] 1.015 Urine Protein Negative Urine Glucose (UA) Normal Urine Ketones Negative Urine Occult Blood Negative Urine Nitrite Negative Urine Bilirubin Negative Urine Urobilinogen Normal Ur Leukocyte Esterase 25 H Urine RBC 0 SEEN Urine WBC 0-5 SEEN Ur Squamous Epith Cells 0-5 SEEN Urine Bacteria RARE Urine Mucus 0 SEEN 02/26/21 03:07 WBC RBC Hgb Hct MCV MCH MCHC RDW Std Deviation RDW Coeff of Jadyn Plt Count MPV Immature Gran % (Auto) Neut % (Auto) Lymph % (Auto) [place] % (Auto) Eos % (Auto) Baso % (Auto) Absolute Neuts (auto) Absolute Lymphs (auto) Nucleated RBC % Sodium Potassium Chloride Carbon Dioxide Anion Gap BUN Creatinine Estim Creat Clear Calc Est GFR (MDRD) Af Amer Est GFR (MDRD) Non-Af BUN/Creatinine Ratio Glucose Lactic Acid 1.7 Calcium Total Bilirubin AST ALT Alkaline Phosphatase Total Protein Albumin Globulin Albumin/Globulin Ratio Lipase Urine Color Urine Clarity Urine pH Ur Specific [place] Urine Protein Urine Glucose (UA) Urine Ketones Urine Occult Blood Urine Nitrite Urine Bilirubin Urine Urobilinogen Ur Leukocyte Esterase Urine RBC Urine WBC Ur Squamous Epith Cells Urine Bacteria Urine Mucus Radiography Diagnostic Testing: Radiology Impression Abdomen/Pelvis CT 02/26/21 02:19 IMPRESSION: 1. Left lower quadrant colonic diverticulitis with no perforation or abscess formation. 2. Mild hepatomegaly and hepatic steatosis. 3. Other nonurgent findings within body of report. Individualized dose optimization techniques were used for this CT. at 0403 Reported and signed by: Rohit Jose MD Electronically Signed: Rohit Jose MD at 4:02 EDT Tel , Service support , Chest X-Ray 02/26/21 03:25 IMPRESSION: No radiographic evidence of acute cardiopulmonary disease. at 0357 Reported and signed by: Rohit Jose MD Electronically Signed: Rohit Jose MD at 3:55 EDT Tel , Service support , Discharge Plan Triage Chief Complaint: Flank Pain ED Provider: Radha Sanchez Dx/Rx/DC Orders Clinical Impression: Diverticulitis large intestine w/o perforation or abscess w/o bleeding Instructions: ED Diverticulitis Prescriptions: New ciprofloxacin HCl [Cipro] 500 mg tablet 500 mg PO BID Qty: 14 RF: 0 metronidazole [Flagyl] 500 mg tablet 500 mg PO Q8H Qty: 21 RF: 0 hydrocodone-acetaminophen 5-325 mg tablet 1 tab PO Q6H PRN (Reason: pain) 3 Days Qty: 12 RF: 0 ondansetron HCl [Zofran] 4 mg tablet 4 mg PO Q8H PRN (Reason: nausea and vomiting) Qty: 14 RF: 0 Primary Care Provider: Jayy Ponce Referrals: Jayy Ponce MD [Primary Care Provider] - Disposition Disposition: Home, Self Care Discharge Date/Time: 02/26/21 04:31
[2021-02-26] MEDS: metroNIDAZOLE 500 MG Tablet PO (04:29)
[2021-02-26 04:30] VITALS: BP 138/62; PULSE 77; RESP 16; O2SAT 98
[2021-02-26] MEDS: Ciprofloxacin 500 MG Tablet PO (04:30)
== END 2021-02-26 04:31 | disposition home or self-care (01) ==
PROVIDERS: Emergency Provider Emergency Medicine; PCP Family Medicine
DX: K57.32 Diverticulitis of large intestine without perforation or abscess without bleeding (principal)
CPT/HCPCS: 71045; 74177; 80053; 81001; 83605; 83690; 85025; 96374; 99285; Q9967; A4216

== ENCOUNTER 2021-04-14 09:51 | Emergency (ER) | payer OTHER, MEDICAID, SELFPAY ==
[2021-04-14 09:52] VITALS: BP 134/86; PULSE 78; RESP 14; TEMP 36.2; O2SAT 96; BMI 37.2
--- NOTE | 2021-04-14 09:58 | CT_ITS ---
STUDY: CT ABDOMEN AND PELVIS WITH CONTRAST REASON FOR EXAM: Female, 60 years old. Left-sided pain RADIATION DOSAGE (If Supplied By Facility): CTDIvol = ( 20.23 ) mGy, DLP = ( 1318.00 ) mGycm TECHNIQUE: Transaxial images were obtained from the dome of the diaphragm to the symphysis pubis without oral contrast. 100 ml of ISOVUE-300 contrast was administered. Sagittal and coronal images were reconstructed. Individualized dose optimization techniques were used for this CT. COMPARISON: 02/26/21 FINDINGS: There is atelectasis at the lung bases. The visualized portions of the heart and pericardium are within normal limits. There are no calcified gallstones present. The liver is within normal limits. There are no suspicious hepatic lesions. The spleen is normal in size. The pancreas is within normal limits. The adrenal glands are within normal limits. There are no renal or ureteral stones. There is no hydronephrosis. There are no focal renal lesions. Normal visualized stomach. There is no bowel obstruction. There are inflammatory changes in the left lower quadrant adjacent to inflamed diverticula in the sigmoid colon. This is consistent with acute sigmoid diverticulitis and is similar in appearance to the CT dated 02/26/21. The appendix is visualized and appears normal. The aorta is normal in caliber. Again noted are atherosclerotic calcifications in the aorta. There is no abdominal or pelvic free air, free fluid, fluid collection or lymphadenopathy. There are no destructive osseous lesions. CT/Abdomen/Pelvis W IV Cont ONLY IMPRESSION: Acute sigmoid diverticulitis which is similar in appearance to the study dated 02/26/21. No free air, free fluid or fluid collection. Electronically Signed: Bridger Arevalo MD at 11:22 EDT Tel , Service support ,
--- NOTE | 2021-04-14 09:59 | EDS_ITS ---
HPI History of Present Illness Chief Complaint: Abd Pain Informant: patient Narrative Narrative: 60-year-old female presenting with left lower quadrant pain. She states this started last night. She denies nausea or vomiting. Denies diarrhea. She has had mild constipation. She has a history of diverticulitis in January and states this feels similar. She was treated with antibiotics and has been improved until last night. She denies fever. Denies other complaints. Prior similar symptoms: Yes Recent Illness/Hospitalization: No PFSH PFSH Medical History Acute diverticulitis of intestine Home Medications ciprofloxacin HCl [Cipro] 500 mg PO BID #14 tab 02/26/21 [Rx Last Taken Unknown] hydrocodone-acetaminophen 1 tab PO Q6H PRN 3 Days #12 tab 02/26/21 [Rx Last Taken Unknown] metronidazole [Flagyl] 500 mg PO Q8H #21 tab 02/26/21 [Rx Last Taken Unknown] ondansetron HCl [Zofran] 4 mg PO Q8H PRN #14 tab 02/26/21 [Rx Last Taken Unknown] ciprofloxacin HCl [Cipro] 500 mg PO BID #14 tab 04/14/21 [Rx Last Taken Unknown] metronidazole 500 mg PO Q8H #21 tab 04/14/21 [Rx Last Taken Unknown] Allergy/AdvReac Type Severity Reaction Status Date / Time Penicillins Allergy Hives Verified 04/14/21 09:52 Surgical History S/P tonsillectomy and adenoidectomy Social History Smoking Status: Never smoker ROS ROS ED Constitutional Constitutional ED: Denies fever(s) Eyes Eyes: Denies change in vision ENT ENT ED: Denies rhinorrhea or sore throat Cardiovascular Cardiovascular: Denies chest pain or palpitations Respiratory/Chest Respiratory/Chest: Denies cough or dyspnea Gastrointestinal Gastrointestinal: Reports abdominal pain and constipation; Denies diarrhea, nausea or vomiting Genitourinary Genitourinary ED: Denies dysuria Musculoskeletal Musculoskeletal: Denies myalgias Integumentary Denies rash Neurologic Neurologic: Denies headache(s) Psychiatric Psychiatric: Denies suicidal thoughts EXAM Physical Exam Const Vital Signs: 04/14/21 09:52 Temperature 97.2 F L Temperature Source Temporal Pulse Rate 78 Respiratory Rate 14 Blood Pressure 134/86 H Blood Pressure Mean 102 Pulse Ox 96 Oxygen Delivery Method Room Air Positive well nourished and well developed General Appearance ED: well developed HEENT Reports normocephalic and head/scalp atraumatic Eyes PERRL and EOMs intact bilaterally Neck supple General: Negative for tenderness Chest Wall inspection of chest normal Resp normal respiratory effort and clear to auscultation bilaterally Cardio regular rate and regular rhythm GI non-distended Palpation: soft and tender LLQ; Negative for guarding or rebound tenderness present no CVA tenderness Back/Spine no CVA tenderness Extremity normal to inspection Neuro oriented x3 Sensorium / Orientation: alert Psych mental status grossly normal MDM MDM MDM Narrative Medical decision making narrative: Patient declined pain medication. She was given IV fluids. CBC shows white count 11.3. CT abdomen pelvis shows acute sigmoid diverticulitis. She is resting comfortably on reevaluation. She has an allergy to penicillin. She is given prescription for Cipro and Flagyl. Advised to follow-up with her primary care physician. Advised return to the ED for worsening complaints. Lab Data Attestation: I reviewed the patient's lab results. Labs: Laboratory Results - last 24 hr 04/14/21 04/14/21 10:05 10:05 WBC 11.3 H RBC 4.73 Hgb 14.3 Hct 43.4 MCV 91.8 MCH 30.2 MCHC 32.9 RDW Std Deviation 41.1 RDW Coeff of Jadyn 12.2 Plt Count 285 MPV 9.0 Immature Gran % (Auto) 0.400 Neut % (Auto) 71.3 H Lymph % (Auto) 16.8 L [place] % (Auto) 9.5 Eos % (Auto) 1.6 Baso % (Auto) 0.4 Absolute Neuts (auto) 8.0 H Absolute Lymphs (auto) 1.89 Nucleated RBC % 0 Sodium 137 Potassium 3.7 Chloride 108 H Carbon Dioxide 25.0 Anion Gap 4 L BUN 15 Creatinine 0.67 Estim Creat Clear Calc 71.50 Est GFR (MDRD) Af Amer 116 Est GFR (MDRD) Non-Af 96 BUN/Creatinine Ratio 22.4 H Glucose 118 H Calcium 9.8 Radiography Diagnostic Testing: Clinical Impression(s) from Imaging Studies Abdomen/Pelvis CT 04/14/21 09:58 IMPRESSION: Acute sigmoid diverticulitis which is similar in appearance to the study dated 02/26/21. No free air, free fluid or fluid collection. Electronically Signed: Bridger Arevalo MD at 11:22 EDT Tel , Service support , Discharge Plan Triage Chief Complaint: Abd Pain ED Provider: Yoko Arenas Dx/Rx/DC Orders Clinical Impression: Acute diverticulitis of intestine Instructions: ED Diverticulitis Prescriptions: New ciprofloxacin HCl [Cipro] 500 mg tablet 500 mg PO BID Qty: 14 RF: 0 metronidazole 500 mg tablet 500 mg PO Q8H Qty: 21 RF: 0 No Action ciprofloxacin HCl [Cipro] 500 mg tablet 500 mg PO BID Qty: 14 RF: 0 metronidazole [Flagyl] 500 mg tablet 500 mg PO Q8H Qty: 21 RF: 0 hydrocodone-acetaminophen 5-325 mg tablet 1 tab PO Q6H PRN (Reason: pain) 3 Days Qty: 12 RF: 0 ondansetron HCl [Zofran] 4 mg tablet 4 mg PO Q8H PRN (Reason: nausea and vomiting) Qty: 14 RF: 0 Primary Care Provider: Jayy Ponce Referrals: Jayy Ponce MD [Primary Care Provider] - Disposition Disposition: Home, Self Care
[2021-04-14 10:19] LABS: Absolute Lymphocyte Count 1.89 X10^3/uL (0.83-4.51); Basophil# 0.05 X10^3/uL; Basophil% 0.4 % (0-1); Eosinophil# 0.18 X10^3/uL; Eosinophils% 1.6 % (0-5); Hematocrit 43.4 % (37-47); Hemoglobin 14.3 g/dL (12.0-15.0); Lymphocyte # 1.89 X10^3/ul (0.83-4.51); Lymphocyte % 16.8 % (19-41); Mean Corp Hgb Conc 32.9 g/dL (32-36); Mean Corpuscular Hgb 30.2 pg (27.0-32.0); Mean Corpuscular Volume 91.8 fL (81-99); Monocyte# 1.07 X10^3/uL; Monocyte% 9.5 % (0-10); NRBC Flagged by Analyzer 0 % (0-5); Neutrophil # 8.04 X10^3/uL (2.7-7.7); Neutrophil % 71.3 % (47-70); Platelet Count 285 K/mm3 (150-450); RBC Distribution Width CV 12.2 % (11.6-14.6); RBC Distribution Width SD 41.1 fl (35.1-43.9); Red Blood Count 4.73 M/mm3 (4.2-5.4); White Blood Count 11.3 K/mm3 (4.4-11.0)
[2021-04-14 10:29] LABS: Anion Gap 4 (5-15); BUN 15 mg/dL (7-18); BUN/Creat Ratio 22.4 RATIO (10-20); Calcium,Total 9.8 mg/dL (8.5-10.1); Chloride 108 mmol/L (98-107); Creatinine, Serum 0.67 mg/dL (0.55-1.02); EST Glomerular Filtration Rate 96 mL/min (>60); Est Glom Filt Rate - Afr Amer 116 mL/min (>60); Glucose 118 mg/dL (74-106); Potassium 3.7 mmol/L (3.5-5.1); Sodium Level 137 mmol/L (136-145)
[2021-04-14] MEDS: metroNIDAZOLE 500 MG Tablet PO (12:08)
[2021-04-14] MEDS: Ciprofloxacin 500 MG Tablet PO (12:08)
== END 2021-04-14 12:12 | disposition home or self-care (01) ==
PROVIDERS: Emergency Provider Emergency Medicine; PCP Family Medicine
DX: K57.32 Diverticulitis of large intestine without perforation or abscess without bleeding (principal); Z87.19 Personal history of other diseases of the digestive system
CPT/HCPCS: 74177; 80048; 85025; 99285; Q9967; A4216

== ENCOUNTER 2021-04-24 08:42 | Emergency (ER) | payer OTHER, MEDICAID, SELFPAY ==
[2021-04-24 08:43] VITALS: BP 139/89; PULSE 74; RESP 16; TEMP 35.7; O2SAT 97; BMI 37.8
--- NOTE | 2021-04-24 09:17 | CT_ITS ---
STUDY: CT ABDOMEN AND PELVIS WITH CONTRAST REASON FOR EXAM: Female, 60 years old. Left lower quadrant pain. Recent diagnosis of diverticulitis. RADIATION DOSAGE (If Supplied By Facility): CTDIvol = ( 20.00 ) mGy, DLP = ( 1258.57 ) mGycm TECHNIQUE: Transaxial images were obtained from the dome of the diaphragm to the symphysis pubis with oral contrast. Oral and amp;amp; IV Gastrografin and amp;amp; 100mL Isovue-300 was administered. Sagittal and coronal images were reconstructed. Individualized dose optimization techniques were used for this CT. COMPARISON: Comparison is made with prior study dated 04/14/2021. FINDINGS: Minimal degree of bibasilar atelectasis. The visualized portions of the heart are within normal limits. There is decreased attenuation of the liver consistent with steatosis. Normal gallbladder and extrahepatic biliary system. Normal spleen. Normal pancreas. Normal bilateral adrenal glands. Normal right kidney. Normal left kidney. Normal visualized stomach. Normal small intestine. There is diverticulosis, with mild thickening of the colon wall, and mild pericolonic inflammation changes consistent with acute diverticulitis. This has improved as compared to prior study. Sigmoid diverticulosis. The appendix is visualized and appears normal. There is scattered atherosclerotic calcification of the abdominal aorta, without a demonstrated aneurysm. Normal inferior vena cava. Normal retroperitoneum. Normal urinary bladder. Normal abdominal wall. Normal osseous structures. CT/Abdomen/Pelvis WITH Contrast IMPRESSION: Mild degree of residual inflammatory changes in the region of the sigmoid colon in keeping with a mild degree of residual diverticulitis. No focal abscess or fluid collection is seen. Diffuse fatty infiltration of the liver. Electronically Signed: Gabo Quick MD at 11:38 EDT , Service support ,
--- NOTE | 2021-04-24 09:19 | EDS_ITS ---
HPI HPI - GI History of Present Illness Chief Complaint: Abd Pain Informant: patient Abdominal Pain/Flank Pain Onset: Weeks (1.5) Context: Gradual Onset Timing: Intermittent Quality: Sharp Location: LLQ Worsened by: Nothing Relieved by: Nothing Nausea/Vomiting/Emesis GI Symptom: Negative for Nausea and Vomiting Diarrhea/Melena/Hematochezia GI Symptom: Negative for Diarrhea Associated Symptoms Associated Symptoms: Negative for Dysuria, Frequency and Hematuria Narrative Narrative: Presents with left lower quadrant abdominal pain that has been getting worse over the past few days. Patient was recently treated for diverticulitis approximately 10 days ago. Patient states she completed her course of antibiotics. Patient states her pain is getting worse since she completed her antibiotics. Patient describes her pain as sharp. Patient states it is worse of the left lower quadrant. Patient states nothing makes it worse and nothing makes it better. Patient denies any nausea or vomiting. Patient denies any diarrhea. Patient admits to a subjective fever this morning but denies any chills. Patient denies any urinary complaints. PFSH PFS Medical History (Updated 04/24/21 @ 12:[address] Bryant Chapa DO) Acute diverticulitis of intestine Home Medications ciprofloxacin HCl 500 mg PO BID #14 tablet 04/24/21 [Rx Last Taken Unknown] metronidazole 500 mg PO Q8H #21 tab 04/24/21 [Rx Last Taken Unknown] Allergy/AdvReac Type Severity Reaction Status Date / Time Penicillins Allergy Hives Verified 04/24/21 08:45 Surgical History (Updated 04/24/21 @ 09:[address] Bryant Chapa DO) History of carpal tunnel surgery Hx of oophorectomy S/P tonsillectomy and adenoidectomy Social History Smoking Status: Never smoker ROS ROS ED Constitutional Constitutional ED: Reports fever(s) and subjective; Denies chills Eyes Eyes: Denies blurry vision or change in vision ENT ENT ED: Denies rhinorrhea or sore throat Cardiovascular Cardiovascular: Denies chest pain or palpitations Respiratory/Chest Respiratory/Chest: Denies cough or dyspnea Gastrointestinal Gastrointestinal: Reports abdominal pain; Denies nausea or vomiting Genitourinary Genitourinary ED: Denies dysuria or hematuria Musculoskeletal Musculoskeletal: Reports back pain; Denies neck pain Integumentary Denies abscess or rash Neurologic Neurologic: Denies headache(s) or weakness Allergic/Immunologic Allergic/Immunologic ED: Denies mouth swelling or urticaria EXAM Physical Exam Const Vital Signs: 04/24/21 08:43 04/24/21 12:52 Temperature 96.3 F L Temperature Source Temporal Pulse Rate 74 67 Respiratory Rate 16 18 Blood Pressure 139/89 H 140/91 H Blood Pressure Mean 105 107 Pulse Ox 97 98 Oxygen Delivery Method Room Air Room Air Positive well nourished, well developed and obese General Appearance ED: well developed Nutritional Appearance: obese HEENT Reports moist mucous membranes Neck supple and no JVD Resp normal respiratory effort and clear to auscultation bilaterally Cardio regular rate, regular rhythm and no murmurs GI normal to inspection, nondistended, normoactive bowel sounds and non-distended Auscultation: normoactive bowel sounds Palpation: soft and tender LLQ; Negative for guarding Extremity normal to inspection General Extremety ED: Negative for edema or tenderness General Extremity: Negative for edema Neuro oriented x3, CN's II-XII intact bilaterally, moves all extremities and no sensory deficits noted Sensorium / Orientation: alert Motor Exam: strength 5/5 throughout Psych mental status grossly normal Skin no rashes or lesions noted MDM MDM MDM Narrative Medical decision making narrative: Patient was given IV fluids and morphine here. CBC and comprehensive metabolic profile were within normal limits. Lipase was normal. Urinalysis was obtained. There is no evidence of urinary tract infection. CT scan of the abdomen pelvis was obtained. The diverticulitis is improving. There is no perforation or free air. This was interpreted by the radiologist and reviewed by myself. Patient was advised of her findings. Patient was given a repeat dose of morphine here. Patient was given another course of Cipro and Flagyl. Patient was instructed to follow-up with her primary care physician in 3 to 5 days for reevaluation. Patient understood and was agreeable with the plan. All questions were answered. Lab Data Attestation: I reviewed the patient's lab results. Labs: Laboratory Results - last 24 hr 04/24/21 04/24/21 04/24/21 09:28 09:28 09:32 WBC 10.9 RBC 4.67 Hgb 13.9 Hct 43.7 MCV 93.6 MCH 29.8 MCHC 31.8 L RDW Std Deviation 42.1 RDW Coeff of Jadyn 12.2 Plt Count 322 MPV 9.0 Immature Gran % (Auto) 0.500 Neut % (Auto) 70.7 H Lymph % (Auto) 17.0 L [place] % (Auto) 9.1 Eos % (Auto) 2.1 Baso % (Auto) 0.6 Absolute Neuts (auto) 7.7 Absolute Lymphs (auto) 1.85 Nucleated RBC % 0 Sodium 141 Potassium 4.0 Chloride 109 H Carbon Dioxide 26.0 Anion Gap 6 BUN 16 Creatinine 0.77 Estim Creat Clear Calc 62.22 Est GFR (MDRD) Af Amer 99 Est GFR (MDRD) Non-Af 82 BUN/Creatinine Ratio 20.8 H Glucose 94 Calcium 9.7 Total Bilirubin 0.40 AST 21 ALT 35 Alkaline Phosphatase 112 Total Protein 7.5 Albumin 3.2 Globulin 4.3 H Albumin/Globulin Ratio 0.7 L Lipase 167 Urine Color Yellow Urine Clarity Sl. Cloudy Urine pH 7.0 Ur Specific [place] 1.015 Urine Protein Negative Urine Glucose (UA) Normal Urine Ketones Negative Urine Occult Blood Negative Urine Nitrite Negative Urine Bilirubin Negative Urine Urobilinogen Normal Ur Leukocyte Esterase Negative Urine RBC 0 SEEN Urine WBC 0 SEEN Ur Squamous Epith Cells 0-5 SEEN Urine Bacteria 1+ Urine Mucus 0 SEEN Radiography Diagnostic Testing: Clinical Impression(s) from Imaging Studies Abdomen/Pelvis CT 04/24/21 09:17 IMPRESSION: Mild degree of residual inflammatory changes in the region of the sigmoid colon in keeping with a mild degree of residual diverticulitis. No focal abscess or fluid collection is seen. Diffuse fatty infiltration of the liver. Electronically Signed: Gabo Quick MD at 11:38 EDT , Service support , Discharge Plan Triage Chief Complaint: Abd Pain ED Provider: Bryant Chapa Dx/Rx/DC Orders Clinical Impression: Acute diverticulitis of intestine Instructions: ED Diverticulitis Prescriptions: New metronidazole [metronidazole] 500 MG tablet 500 mg PO Q8H Qty: 21 RF: 0 ciprofloxacin HCl [ciprofloxacin HCl] 500 MG tablet 500 mg PO BID Qty: 14 RF: 0 Stand Alone Forms: ED Work / School Excuse Primary Care Provider: Jayy Ponce Referrals: Jayy Ponce MD [Primary Care Provider] - 3-5 Days Disposition Disposition: Home, Self Care
[2021-04-24] MEDS: 0.9% Normal Saline 1,000 ML 1000 ML IV (09:33)
[2021-04-24 09:34] LABS: Absolute Lymphocyte Count 1.85 X10^3/uL (0.83-4.51); Absolute Neutrophil Count 7.7 X10^3/uL (2.0-7.7); Basophil# 0.07 X10^3/uL; Basophil% 0.6 % (0-1); Eosinophil# 0.23 X10^3/uL; Eosinophils% 2.1 % (0-5); Hematocrit 43.7 % (37-47); Hemoglobin 13.9 g/dL (12.0-15.0); Lymphocyte # 1.85 X10^3/ul (0.83-4.51); Mean Corp Hgb Conc 31.8 g/dL (32-36); Mean Corpuscular Hgb 29.8 pg (27.0-32.0); Mean Corpuscular Volume 93.6 fL (81-99); Monocyte# 0.99 X10^3/uL; Monocyte% 9.1 % (0-10); NRBC Flagged by Analyzer 0 % (0-5); Neutrophil # 7.72 X10^3/uL (2.7-7.7); Neutrophil % 70.7 % (47-70); Platelet Count 322 K/mm3 (150-450); RBC Distribution Width CV 12.2 % (11.6-14.6); RBC Distribution Width SD 42.1 fl (35.1-43.9); Red Blood Count 4.67 M/mm3 (4.2-5.4); White Blood Count 10.9 K/mm3 (4.4-11.0)
[2021-04-24 09:38] LABS: Mucous, Urine 0 SEEN /hpf (<or=2+); Red Blood Cells-Urine 0 SEEN /hpf (0-5); White Blood Cells 0 SEEN /hpf (0-5)
[2021-04-24 09:39] LABS: Color, Urine Yellow (Yellow); Glucose, Dipstick Normal (Normal); Ketone-Dipstick Negative (Negative); Leukocyte Esterase-Dipstick Negative /ul (Negative); Nitrite-Dipstick Negative (Negative); Occult Blood-Urine Negative /ul (Negative); Protein-Dipstick Negative (Negative); Specific Gravity, Urine 1.015 (1.002-1.030); Urine Bilirubin Dipstick Negative (Negative); Urine Clarity Sl. Cloudy (Clear); Urine Urobilinogen Normal (Normal)
[2021-04-24 09:45] LABS: Bacteria 1+ /hpf (None Seen); Squamous Epithelial Cells - UA 0-5 SEEN /hpf (5-10)
[2021-04-24 09:51] LABS: ALB/GLOB Ratio 0.7 RATIO (0.9-2.4); AST(SGOT) 21 U/L (15-37); Alanine Aminotransfer ALT/SGPT 35 U/L (13-56); Albumin, Serum 3.2 g/dL (3.2-5.0); Alkaline Phosphatase 112 U/L (45-117); Anion Gap 6 (5-15); BUN 16 mg/dL (7-18); BUN/Creat Ratio 20.8 RATIO (10-20); Calcium,Total 9.7 mg/dL (8.5-10.1); Chloride 109 mmol/L (98-107); Creatinine, Serum 0.77 mg/dL (0.55-1.02); EST Glomerular Filtration Rate 82 mL/min (>60); Est Glom Filt Rate - Afr Amer 99 mL/min (>60); Estimated Creatinine Clearance 62.22 ml/min; Globulin 4.3 g/dL (2.2-4.2); Glucose 94 mg/dL (74-106); Lipase 167 U/L (73-393); Protein, Total 7.5 g/dL (6.4-8.2); Sodium Level 141 mmol/L (136-145)
[2021-04-24 12:52] VITALS: BP 140/91; PULSE 67; RESP 18; O2SAT 98
== END 2021-04-24 13:07 | disposition home or self-care (01) ==
PROVIDERS: Emergency Provider Emergency Medicine; PCP Family Medicine
DX: K57.92 Diverticulitis of intestine, part unspecified, without perforation or abscess without bleeding (principal); E66.9 Obesity, unspecified; Z68.37 Body mass index [BMI] 37.0-37.9, adult
CPT/HCPCS: 74177; 80053; 81001; 83690; 85025; 96360; 96361; 99283; J7030; Q9967; A4216

== ENCOUNTER 2022-12-08 15:20 | Emergency (ER) | payer BC, SELFPAY ==
[2022-12-08 15:20] VITALS: BP 126/74; PULSE 85; RESP 16; TEMP 36.6; O2SAT 98; BMI 30.9
--- NOTE | 2022-12-08 15:34 | EDS_ITS ---
HPI History of Present Illness Chief Complaint: Chest Other Informant: patient Onset/Context/Timing Onset: Weeks (2) Mechanism/Context: other Location: Bilateral ribs, worse on the right Worsened by: Movement Relieved by: Nothing Associated Symptoms Associated Symptoms: Negative for Parasthesias, Weakness, Loss of function, Inability to ambulate, Loss of consciousness or Amnesia Narrative Narrative: Patient presents with bilateral rib pain that has been getting worse over the past 2 weeks. Patient states that her gave her a big hug 2 weeks ago and she felt some cracking sensation in her ribs. Patient states it has been persistent over the past 2 weeks. Patient denies any shortness of breath. Patient denies any cough. Patient denies any nausea or vomiting. Patient states her pain is worse with movement. Patient describes her pain as aching. Patient also complains of some lower abdominal pressure. Patient is concerned that she may have a urinary tract infection. [facility] Medical History Acute diverticulitis of intestine Home Medications ciprofloxacin HCl 500 mg tablet 500 mg PO BID #14 TABLETS 04/24/21 [Rx Last Taken Unknown] metronidazole 500 mg tablet 500 mg PO Q8H #21 tabs 04/24/21 [Rx Last Taken Unknown] Allergy/AdvReac Type Severity Reaction Status Date / Time Penicillins Allergy Hives Verified 12/08/22 15:22 Surgical History History of carpal tunnel surgery Hx of oophorectomy S/P tonsillectomy and adenoidectomy Social History Smoking Status: Never smoker ROS ROS ED Constitutional Constitutional ED: Denies chills or fever(s) Eyes Eyes: Denies blurry vision or change in vision ENT ENT ED: Denies rhinorrhea or sore throat Cardiovascular Cardiovascular: Reports chest pain and palpitations Respiratory/Chest Respiratory/Chest: Reports cough; Denies dyspnea Gastrointestinal Gastrointestinal: Reports abdominal pain; Denies nausea or vomiting Genitourinary Genitourinary ED: Denies dysuria or hematuria Musculoskeletal Musculoskeletal: Reports back pain; Denies neck pain Integumentary Denies abscess or rash Neurologic Neurologic: Denies headache(s) or weakness Allergic/Immunologic Allergic/Immunologic ED: Denies mouth swelling or urticaria EXAM Physical Exam Const Vital Signs: 12/08/22 15:20 12/08/22 15:20 Temperature 98 F Temperature Source Temporal Pulse Rate 85 Respiratory Rate 16 Respiratory Effort Normal Non-Labored Blood Pressure 126/74 H Blood Pressure Mean 91 Pulse Ox 98 Oxygen Delivery Method Room Air Positive well nourished and well developed General Appearance ED: well developed and NAD HEENT atraumatic Neck full ROM Chest Wall Chest Narrative: There is tenderness over the right lateral chest. There is also some tenderness over the sternum. There is no bony crepitance or step-off. Resp normal respiratory effort and clear to auscultation bilaterally Cardio regular rhythm Rate: regular rate GI normal to inspection, nondistended, normoactive bowel sounds Palpation: soft and tender suprapubic; Negative for guarding or rebound tenderness present Extremity full ROM General Extremety ED: Negative for deformity General Extremity: Negative for deformity Neuro oriented x3, CN's II-XII intact bilaterally, moves all extremities, no focal motor deficits and no sensory deficits noted Sensorium / Orientation: alert Motor Exam: strength 5/5 throughout Psych mental status grossly normal MDM MDM MDM Narrative Medical decision making narrative: Differential diagnosis includes rib fracture, chest wall strain, pneumothorax, and urinary tract infection. Urinalysis will be obtained to assess for urinary tract infection. X-rays of the ribs and chest will be obtained to assess for rib fracture or pneumothorax. Lab Data Attestation: I reviewed the patient's lab results. Lab results narrative: Urinalysis was reviewed. There is no evidence of urinary tract infection or hematuria. Labs: Laboratory Results - last 24 hr 12/08/22 16:30 Urine Color Yellow Urine Clarity Clear Urine pH 7.0 Ur Specific [place] 1.010 Urine Protein Negative Urine Glucose (UA) Normal Urine Ketones 5 H Urine Occult Blood Negative Urine Nitrite Negative Urine Bilirubin Negative Urine Urobilinogen Normal Ur Leukocyte Esterase Negative Urine RBC 0 SEEN Urine WBC 0 SEEN Ur Squamous Epith Cells 0 SEEN Urine Bacteria 0 SEEN Urine Mucus 0 SEEN Radiography Diagnostic Testing: Clinical Impression(s) from Imaging Studies Ribs w/Chest X-Ray 12/08/22 15:50 IMPRESSION: Negative chest and ribs series. Electronically Signed: Anthony Dickinson DO at 16:13 EDT Reading Location ID and State: [facility] / [place] Tel [phone], Service support , X-rays of the bilateral ribs were obtained. There were 9 views. On my independent interpretation, there is no acute fracture. There is no pneumothorax. Radiologist also interpreted the x-rays and agrees. Treatment and Re-Evaluation Narrative: Patient was advised of her findings. Patient was advised that this is most likely muscular strain. Patient was instructed use Tylenol or ibuprofen as needed for pain. Patient was instructed to take 10-15 deep breaths every hour while awake prevent atelectasis and pneumonia. Patient was instructed to follow-up with her primary care physician in 5 to 7 days. Patient understood and was agreeable with the plan. All questions were answered. Discharge Plan Triage Chief Complaint: Chest Other ED Provider: Bryant Chapa Dx/Rx/DC Orders Clinical Impression: Chest wall contusion Instructions: ED Chest Wall Contusion Prescriptions: No Action metronidazole [metronidazole] 500 MG tablet 500 mg PO Q8H Qty: 21 0RF ciprofloxacin HCl [ciprofloxacin HCl] 500 MG tablet 500 mg PO BID Qty: 14 0RF Primary Care Provider: Tristen Cruz Referrals: Tristen Cruz MD [Primary Care Provider] - 5-7 Days Jayy Ponce MD [Non-Staff] - Disposition Disposition: Home, Self Care
--- NOTE | 2022-12-08 15:50 | RAD_ITS ---
INDICATION: Trauma EXAMINATION/TECHNIQUE: X-RAY - XR Ribs 8Views W/ PA Chest Bilateral COMPARISON: FINDINGS: LINES/DEVICES: None. LUNGS: No consolidation, edema or effusion. No pneumothorax. MEDIASTINUM AND CARDIOVASCULAR STRUCTURES: Cardiac silhouette not enlarged. Central airways and mediastinal contour are unremarkable. RIBS AND OSSEOUS STRUCTURES: Unremarkable. No evidence of displaced rib fractures. RAD/Ribs Wander Min 4V w/PA Chest IMPRESSION: Negative chest and ribs series. Electronically Signed: Anthony Dickinson DO at 16:13 EDT ,
[2022-12-08 16:35] LABS: Bacteria 0 SEEN /hpf (None Seen); Mucous, Urine 0 SEEN /hpf (<or=2+); Red Blood Cells-Urine 0 SEEN /hpf (0-5); Squamous Epithelial Cells - UA 0 SEEN /hpf (5-10); White Blood Cells 0 SEEN /hpf (0-5)
[2022-12-08 16:39] LABS: Color, Urine Yellow (Yellow); Glucose, Dipstick Normal (Normal); Ketone-Dipstick 5 mg/dl (Negative); Leukocyte Esterase-Dipstick Negative /ul (Negative); Nitrite-Dipstick Negative (Negative); Occult Blood-Urine Negative /ul (Negative); Protein-Dipstick Negative (Negative); Urine Bilirubin Dipstick Negative (Negative); Urine Clarity Clear (Clear); Urine Urobilinogen Normal (Normal)
[2022-12-08 17:19] VITALS: O2SAT 97
== END 2022-12-08 17:20 | disposition home or self-care (01) ==
PROVIDERS: Emergency Provider Emergency Medicine; Referring Provider Emergency Medicine; Visit Provider Emergency Medicine
DX: S20.20XA Contusion of thorax, unspecified, initial encounter (principal); X58.XXXA Exposure to other specified factors, initial encounter
CPT/HCPCS: 71111; 81001; 99282

== ENCOUNTER → 2024-01-21 | Outpatient (CLI) | payer BC, SELFPAY ==
[2024-01-21 12:51] LABS: Absolute Lymphocyte Count 2.01 X10^3/uL (0.83-4.51); Absolute Neutrophil Count 3.9 X10^3/uL (2.0-7.7); Basophil# 0.04 X10^3/uL; Basophil% 0.6 % (0-1); Eosinophil# 0.08 X10^3/uL; Eosinophils% 1.2 % (0-5); Hematocrit 42.7 % (37-47); Hemoglobin 13.6 g/dL (12.0-15.0); Lymphocyte # 2.01 X10^3/ul (0.83-4.51); Lymphocyte % 30.9 % (19-41); Mean Corp Hgb Conc 31.9 g/dL (32-36); Mean Corpuscular Volume 94.3 fL (81-99); Monocyte# 0.51 X10^3/uL; Monocyte% 7.8 % (0-10); NRBC Flagged by Analyzer 0 % (0-5); Neutrophil # 3.86 X10^3/uL (2.7-7.7); Neutrophil % 59.3 % (47-70); Platelet Count 238 K/mm3 (150-450); Red Blood Count 4.53 M/mm3 (4.2-5.4); White Blood Count 6.5 K/mm3 (4.4-11.0)
[2024-01-21 13:30] LABS: ALB/GLOB Ratio 0.9 RATIO (0.9-2.4); AST(SGOT) 29 U/L (15-37); Alanine Aminotransfer ALT/SGPT 35 U/L (13-56); Albumin, Serum 3.6 g/dL (3.2-5.0); Alkaline Phosphatase 123 U/L (45-117); Anion Gap 10 (5-15); BUN 18 mg/dL (7-18); BUN/Creat Ratio 37.5 RATIO (10-20); Calcium,Total 9.6 mg/dL (8.5-10.1); Chloride 105 mmol/L (98-107); Cholesterol 206 mg/dL (200); Creatinine, Serum 0.48 mg/dL (0.55-1.02); EST Glomerular Filtration Rate 139 mL/min (>60); Est Glom Filt Rate - Afr Amer 168 mL/min (>60); Glucose 84 mg/dL (74-106); High Density Lipoprotein 88 mg/dL; Potassium 3.9 mmol/L (3.5-5.1); Protein, Total 7.6 g/dL (6.4-8.2); Sodium Level 138 mmol/L (136-145); Thyroid Stim Hormone (TSH) 0.54 uIU/mL (0.358-3.74); Triglycerides 43 mg/dL; Very Low Density Lipoprotein 9 mg/dL (5-40)
[2024-01-21 17:25] LABS: Hemoglobin A1c 4.8 % (3.8-5.6)
== END | disposition home or self-care (01) ==
LOC: VSLAB 10:04
PROVIDERS: PCP Nurse Practitioner Family; Visit Provider Nurse Practitioner Family
DX: Z00.00 Encounter for general adult medical examination without abnormal findings (principal); E66.9 Obesity, unspecified
CPT/HCPCS: 36415; 80053; 80061; 83036; 84443; 85025